=== PATIENT | female | born 1995 | race Caucasian/White ===

== ENCOUNTER 2017-05-31 21:44 | Emergency (ER) | payer MEDICAID ==
[~2017-05-31] VITALS: Ht 162.6 cm; Wt 75.0 kg
[2017-05-31] MEDS ORDERED: PROZAC20 M1 PO (21:59)
[2017-05-31] MEDS ORDERED: PROAIR HFA0.09 MG/AC IH (22:00)
[2017-05-31] MEDS ORDERED: TOPAMAX50 M1 PO (22:05)
[2017-05-31 22:33] VITALS: BP 132/65
== END 2017-05-31 22:33 | disposition home or self-care (01) ==
LOC: ED 21:44
DX: H69.82 Other specified disorders of Eustachian tube, left ear (principal); J06.9 Acute upper respiratory infection, unspecified